=== PATIENT | male | born 1985 | race Caucasian/White ===

== ENCOUNTER 2021-01-25 12:51 | Inpatient (IN) | payer OTHER ==
[~2021-01-25] VITALS: Ht 172.7 cm; Wt 87.1 kg
[2021-01-25] VITALS (10 sets, daily range): BP systolic 92–113; BP diastolic 43–67
[~2021-01-25 12:51] MED LIST: ADULTS' DAILY1 EACH PO; AMBIEN 10 MG TA10 MG PO; AMBIEN 5 MG TABL5 M1 PO; AMITRIPTYLINE H25 M2 PO; CATAPRES-TTS 11 EACH TRANSDERM; CATAPRES0.1 MG PO; CEFDINIR300 MG PO; IBUPROFEN 800800 MG PO; LIPITOR 20 MG T20 M1 PO; LISINOPRIL20 MG PO; LOSARTAN POTASS50 MG PO; NEURONTIN 300300 M1 PO; NON-ASPIRIN325 MG PO; PANTOPRAZOLE SO40 M1 PO; PEPCID20 MG PO; SENNA8.6 MG PO; VALIUM5 MG PO; XARELTO20 MG PO; ZYRTEC10 M2 PO
[2021-01-25 13:08] LABS: ABSOLUTE LYMPHOCYTES 1.4 thou/uL (0.8-5.3); ABSOLUTE MONOCYTES 0.3 thou/uL (0.0-1.2); ABSOLUTE NEUTROPHILS 3.8 thou/uL (1.6-8.1); BASOPHILS 0.4 %; EOSINOPHILS 0.3 %; HEMATOCRIT 42.6 % (42.0-52.0); HEMOGLOBIN 14.3 gm/dL (14.0-18.0); LYMPHOCYTES 24.3 %; MCH 31.3 pg (26.0-34.0); MCHC 33.6 g/dL (28.0-37.0); MCV 93.1 fL (80.0-100.0); MPV 8.6 fl. (7.2-11.1); NUCLEATED RBCS 0 /100WBC; PLATELET COUNT* 180 thou/uL (150-400); RBC 4.58 mil/uL (4.50-6.00); RDW-CV 14.3 % (10.5-14.5); WBC 5.6 thou/uL (4.0-11.0)
[2021-01-25 13:15] LABS: CALCIUM 8.6 mg/dL (8.5-10.1); CREATININE 0.9 mg/dL (0.6-1.3); POTASSIUM 4.2 mmol/L (3.5-5.1)
[2021-01-25 13:19] LABS: ALBUMIN 3.7 g/dL (3.4-5.0); TOTAL BILIRUBIN 0.4 mg/dL (<0.1-1.0); TOTAL PROTEIN 6.7 g/dL (6.4-8.2)
[2021-01-25 13:24] LABS: ACETAMINOPHEN < 2 ug/mL (10-30); ALCOHOL 215 mg/dL (<10); SALICYLATE < 2.8 mg/dL (2.8-20.0)
--- NOTE | 2021-01-25 14:36 | NUR ---
PT CAME IN WITH A BAG OF UNKNOWN PILLS. PT'S BAG OF PILLS PUT IN A PATIENT BELONGING BAG AND WALKED DOWN TO PHARMACY BY THIS NURSE. BAG #[id number].
[2021-01-25 14:59] LABS: URINE BILIRUBIN NEGATIVE (Negative); URINE BLOOD NEGATIVE (Negative); URINE CLARITY CLEAR; URINE COLOR YELLOW; URINE GLUCOSE-RANDOM NEGATIVE (Negative); URINE KETONES NEGATIVE (Negative); URINE LEUKOCYTES-REFLEX NEGATIVE (Negative); URINE NITRITE-REFLEX NEGATIVE (Negative); URINE PROTEIN NEGATIVE (Negative); URINE SPECIFIC GRAVITY <= 1.005 (1.005-1.030); URINE UROBILINOGEN 0.2 E.U./dl (0.2-1.0)
[2021-01-25 15:07] LABS: AMP/METHAMP Negative (Negative); BARBITURATES Negative (Negative); BENZODIAZEPINES Negative (Negative); COCAINE Negative (Negative); METHADONE Negative (Negative); OPIATES Negative (Negative); PCP Negative (Negative); THC POSITIVE (Negative)
[2021-01-25] MEDS ORDERED: AMITRIPTYLINE100 MG PO (17:11)
[2021-01-25] MEDS ORDERED: LIPITOR40 MG PO (17:11)
[2021-01-25] MEDS ORDERED: DULOXETINE HCL30 MG PO (17:12)
--- NOTE | 2021-01-25 21:47 | NUR ---
ASSUMED CARE AT 1900H, ON NC AT 2LPM AND TOLERATED. ORIENTED X4 BUT STILL LETHURGIC. PT WOKE UP ARROUND 2000H, HE WAS RUDE AND SWEARING. HE WANTED TO GET HIS BELONGINGS AND GO HOME. EXPLAINED TO HIM THAT WE HAVE A HOLD ON HIM AND WE ARE HERE TO HELP AND KEEP HIM SAFE. PT ASKED TO CALL HIS FAMILY. CALLED HIS SISTER(ANGELIC) AND LET PT TALK TO HER. PT THREW THE HOSPITAL PHONE ON THE FLOOR AFTER TALKING TO HER SISTER. GAVE HIM WATER AND SNACK BOX PER PT REQUEST AND STILL VERY RUDE. PT REFUSED TO TAKE HIS MEDS, ACCORDING TO HIM HIS DOCTOR CHANGE HIS HOME MEDS. I ASKED HIS NEW MEDS BUT I'M NOT SURE WHAT ARE THOSE. MOM CALLED(ILANA) AND UPDATE GIVEN. SHE DON'T KNOW ABOUT HER SON'S NEW MEDS. ACCORDING TO HER, PT'S PSYCHIATRIC DOCTOR IS ROSARIO RUBIO AT [facility]. PT TALK TO SECURITY REGARDING HIS BELONGINGS. PT CALM DOWN BUT STILL RUDE.
[2021-01-26] VITALS (12 sets, daily range): BP systolic 98–123; BP diastolic 49–65
[2021-01-26 02:50] LABS: ABSOLUTE EOSINOPHILS 0.1 thou/uL (0.0-0.7); ABSOLUTE LYMPHOCYTES 2.2 thou/uL (0.8-5.3); ABSOLUTE MONOCYTES 0.4 thou/uL (0.0-1.2); ABSOLUTE NEUTROPHILS 2.5 thou/uL (1.6-8.1); BASOPHILS 0.8 %; EOSINOPHILS 1.5 %; HEMATOCRIT 41.1 % (42.0-52.0); HEMOGLOBIN 13.9 gm/dL (14.0-18.0); LYMPHOCYTES 42.2 %; MCH 31.3 pg (26.0-34.0); MCHC 33.8 g/dL (28.0-37.0); MCV 92.8 fL (80.0-100.0); MONOCYTES 7.8 %; MPV 8.9 fl. (7.2-11.1); NUCLEATED RBCS 0 /100WBC; PLATELET COUNT* 177 thou/uL (150-400); POLYS 47.7 %; RBC 4.43 mil/uL (4.50-6.00); RDW-CV 14.4 % (10.5-14.5); WBC 5.3 thou/uL (4.0-11.0)
[2021-01-26 02:58] LABS: ALBUMIN 3.3 g/dL (3.4-5.0); CALCIUM 8.7 mg/dL (8.5-10.1); CREATININE 0.8 mg/dL (0.6-1.3); POTASSIUM 4.6 mmol/L (3.5-5.1); TOTAL BILIRUBIN 0.2 mg/dL (<0.1-1.0); TOTAL PROTEIN 6.1 g/dL (6.4-8.2)
--- NOTE | 2021-01-26 06:29 | NUR ---
PT SLEPT MOSTLY THE WHOLE SHIFT. NO DISTRESS NOTE. CONTINUE MONITORING AND TOWARDS GOALS.
--- NOTE | 2021-01-26 06:47 | NUR ---
JUST GAVE PT'S PILLS AND HE IS PLEASANT NOW WITH NO COMPLAIN.
--- NOTE | 2021-01-26 08:53 | NUR ---
ASSUMED CARE OF PT 0700. 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 PTS MOM STATED THAT PT WAS VERY AGITATED SEVERAL DAYS LEADING UP TO HOSPITALIZATION, SHE CALLED EMS BECUASE HE WAS THREATENING TO SLIT HIS WRIST, ONCE EMS CALLED PT THEN TOOK SEVERAL PILLS DESPITE FAMILY TRYIING TO STOP HIM. SITTER AT BEDSIDE, PTS HR 40-60'S WITH NO SYMPTOMS, DR RAGLAND AWARE, PT MADE TELE STATUS, WILL CONTINUE TO MONITOR.
--- NOTE | 2021-01-26 12:09 | EKG ---
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
--- NOTE | 2021-01-26 14:00 | NUR ---
CM SPK WITH PT'S SO OF 8 YRS, BEREKET PT WAS NOT RESPONDING. PT ATTEMTPED TO SUICIDE BY OVERDOSE, PER BEREKET PT TOOK TWO DIFFERENT TYPES OF MEDICATIONS. SHE BELIEVED ONE OF THE MEDICATION TO BE PT'S SLEEPING PILLS, WHICH BEREKET STATED PT HAD STOP TAKING AND HADN'T SLEPT WELL IN ABOUT 1 1/2 TO 2 WEEKS. PER BEREKET PT HAS BIPOLAR DX AND WAS UPSET D/T "WORK STRESS..." AND STRESS R/T REPAIRS BEING DONE TO THE HOME. PT HAS ALCOHOL USE DISORDER, USUSALLY DRINKS A 5TH OF VODKA/DAY. PT HAD BEEN SOBER FOR 9 MONTHS "UP UNTIL YESTERDAY." PT BEGAN AGGRESS AND PHYSICALLY TRIED TO REMOVE HIS MOTHER AND BEREKET FROM HIS OWN BY "PUSHING." PER BEREKET PT HAD BEEN IN A "MANIC" STATED "GOING AROUND TEARING UP THE CARPET" STAYING UP EATING ONLY JUNK FOOD FOR THE LAST SEVERAL DAYS. TELE PYSCH CONSULT ORDERED. CM TO CONT TO FOLLOW TO ASSIT WITH D/C.
--- NOTE | 2021-01-26 17:20 | NUR ---
PT A&OX4 VSS. PT REMAINS ON 1:1. PT ARRIVED ON UNIT APPROX 1045 THIS AM FROM ICU. MOM AND SISTER UPDATED BY PHONE THIS SHIFT. PT SLEEPS INTERMITTENTLY THROUGHOUT SHIFT. PT REMAINS ON ROOM AIR, SATS >95%. FALL PRECAUTIONS IN PLACE. NURSING STAFF IN ROOM IN VIEW OF PT AT ALL TIMES FOR SAFETY. IV TO LAC PATENT, FLUIDS INFUSING. IV TO L HAND PATENT, SALINE LOCKED. PT AWAITS TELEPSYCH CONSULT. PT RESTS IN ROOM, WILL CONTINUE TO MONITOR
[2021-01-26] MEDS ORDERED: MULTI VITAMIN1 EACH PO (21:09)
[2021-01-26] MEDS ORDERED: GABAPENTIN600 M1 PO (21:09)
[2021-01-26] MEDS ORDERED: ROZEREM 8 MG TAB8 M1 PO (21:36)
[2021-01-26] MEDS ORDERED: ZYRTEC10 M5 PO (21:37)
[2021-01-26] MEDS ORDERED: FISH OIL 1,0001 EAC9 PO (22:20)
[2021-01-27] VITALS: BP 104/62
[2021-01-27 04:00] VITALS: BP 107/61; BP 137/76
[2021-01-27 04:12] LABS: HEMATOCRIT 41.8 % (42.0-52.0); MCH 31.2 pg (26.0-34.0); MCHC 33.6 g/dL (28.0-37.0); MPV 9.1 fl. (7.2-11.1); RBC 4.5 mil/uL (4.50-6.00)
[2021-01-27 04:35] LABS: CALCIUM 8.9 mg/dL (8.5-10.1); CREATININE 0.8 mg/dL (0.6-1.3); POTASSIUM 4.5 mmol/L (3.5-5.1)
--- NOTE | 2021-01-27 04:37 | NUR ---
ASSUMED PT CARE AT APPROX 1930. PT IS AWAKE AND ORIENTED X4. PT IS NOT IN DISTRESS, NO DESATURATIONS NOTED ON ROOM AIR. PT DENIES SUICIDAL IDEATIONS AT THIS TIME. 1:[address] FOR SAFETY. NO ACTE CHANGES THROUGHOUT THIS SHIFT.PT IS CLOSELY MONITORED.
[2021-01-27 08:10] VITALS: BP 116/70
[2021-01-27] MEDS ORDERED: CELEXA 20 MG TA20 MG PO (10:11)
[2021-01-27] MEDS ORDERED: PROTONIX 20 MG20 MG PO (10:11)
[2021-01-27 12:00] VITALS: BP 117/69
--- NOTE | 2021-01-27 14:11 | NUR ---
Tele psych consult pending. Anticipate dc home later, Pt to f/u with his psychiatrist as outpt. Await tele psych recs prior to dc.
[2021-01-27 15:00] VITALS: BP 117/69
--- NOTE | 2021-01-27 15:53 | NUR ---
PT A&OX4 VSS. PT UP AD RUBEN IN ROOM. 1:1 THIS SHIFT FOR PT SAFETY. PRECAUTIONS IN PLACE. CONTINENT OF B/B. IV TO LAC AND R HAND PATENT, SALINE LOCKED. LINES DC'D PRIOR TO PT LEAVING UNIT. NO ACTIVE BLEEDING AT SITES. PT CALM AND COOPERATIVE THIS SHIFT. PT SLEPT INTERMITTENTLY. TELEPSYCH CONSULT THIS AFTERNOON. PT CLEARED TO DC TO HOME PER PSYCH CONSULT, DR RAGLAND NOTIFIED. PT BELONGINGS RETURNED FROM SECURITY. PT DRESSED INDEPENDENTLY. PT IN ROOM WITH CALL LIGHT IN REACH. PT WAITING FOR FAMILY MEMBER TO PICK HIM UP.
[2021-01-27 16:03] VITALS: BP 117/69
== END 2021-01-27 16:10 | disposition home or self-care (01) | DRG 918 ==
LOC: M.ERS 12:51 → M.2W 13:49 → M.TBA-ER 13:49 → M.ICU 15:37 → M.2W 01-26 10:45
PROVIDERS: Emergency Medicine Emergency Medical Services; Family Medicine; ADMIT Internal Medicine; ATTEND Internal Medicine
DX: T42.4X2A Poisoning by benzodiazepines, intentional self-harm, initial encounter (principal); R45.851 Suicidal ideations; I10 Essential (primary) hypertension; G47.00 Insomnia, unspecified; K21.9 Gastro-esophageal reflux disease without esophagitis; F41.9 Anxiety disorder, unspecified; F32.9 Major depressive disorder, single episode, unspecified; E78.5 Hyperlipidemia, unspecified; E66.9 Obesity, unspecified; R06.03 Acute respiratory distress; Z20.822 Contact with and (suspected) exposure to COVID-19; Y92.89 Other specified places as the place of occurrence of the external cause; Z68.29 Body mass index [BMI] 29.0-29.9, adult